=== PATIENT | male | born 1985 | race African-American/Black ===

== ENCOUNTER → 2016-11-15 | Day surgery (SDC) | payer OTHER ==
[~2016-11-15] MED LIST: CHANTIX1 MG PO; KEFLEX500 MG PO
--- NOTE | ~2016-11-15 | OR ---
Unit #: [id number] #: [id number] Patient: KADEEM DEL CID [id number] [address] [place], [place] [address] [id number] MR#: [id number] NAME: KADEEM DEL CID ROOM: Date of Procedure: 11/15/2016 Admission Date: 11/15/2016 Surgeon: Orion Alford M.D. : 1985 Attending Physician: Orion Alford M.D. OPERATIVE REPORT PREOPERATIVE DIAGNOSIS Recurrent sebaceous cyst, right upper chest. POSTOPERATIVE DIAGNOSIS Recurrent sebaceous cyst, right upper chest. PROCEDURE PERFORMED Excision of recurrent sebaceous cyst, right upper chest 3 x 2 cm with layered closure. ANESTHESIA Versed 4 mg, Demerol 50 mg each IV push in divided dosages with continuous cardiac and O2 saturation monitoring, 1% Xylocaine plain local anesthesia. FINDINGS The area was excised and sent to pathology. SPECIMENS Sent to pathology. COMPLICATIONS None apparent. CONDITION The patient tolerated the procedure well. INDICATIONS FOR PROCEDURE The patient is a 31-year-old black male, who had excision of a sebaceous cyst many years ago. It has recurred. This has become larger and increasingly bothersome. He presents at this time for excision for pathologic diagnosis and treatment. DESCRIPTION OF PROCEDURE After obtaining informed consent as well as receiving preoperative antibiotics, the patient was brought to the operating room and after adequate IV sedation, had the right upper chest prepped and draped in a sterile fashion. After adequate local anesthesia was obtained with 1% Xylocaine plain local anesthesia, an elliptical incision was made transversely around the area with a knife and taken down through the subdermal tissues and subcutaneous tissues with electrocautery circumferentially. The area was excised completely and sent to pathology. The wound was irrigated and hemostasis was obtained with the Bovie, Unit #: [id number] #: [id number] Patient: KADEEM DEL CID infiltrated with some additional local anesthesia. The subdermal and deep tissues were reapproximated with interrupted 3-0 Vicryl sutures taking a bite of the base of the wound to obliterate any space. The skin was closed with a 4-0 Vicryl subcuticular stitch. Benzoin and Steri-Strips were applied over the wound in an occlusive manner followed by dry dressing and a Tegaderm dressing. Needle counts, sponge counts, and instrument counts were all correct as reported by the scrub nurse x2. The patient went from the operating room to the recovery room in stable condition. Dictated by... Rosie aMson/kenn TD: 11/16/2016 01:18 JOB #: [id number] CC: Camron Flanagan M.D. [facility] OPERATIVE REPORT Page 1 of 1 X Orion Alford MD X PROCEDURE OPERATIVE NOTE
== END | disposition home or self-care (01) ==
LOC: CSUR 05:58
DX: L72.0 Epidermal cyst (principal); F17.210 Nicotine dependence, cigarettes, uncomplicated
CPT/HCPCS: 88304; J0690; J2175; J2250